=== PATIENT | male | born 1935 | race Caucasian/White ===

== ENCOUNTER 2018-12-20 10:36 | Outpatient (CLI) | payer MEDICARE ==
--- NOTE | 2018-12-20 14:12 | NM ---
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 COMPARISON: 12/03/2015 FINDINGS: There is increased uptake in the shoulders, sternoclavicular joints, elbows, hands, and feet consiste nt with degenerative changes. No other abnormal areas of tracer localization seen in the skeleton to suggest metastatic disease. Tracer excretion through the kidneys is within normal limits. IMPRESSION: No scintigraphic evidence of osseous metastatic disease.
== END 2018-12-20 10:37 | disposition home or self-care (01) ==
LOC: NM 10:36
PROVIDERS: ATTEND Urology
DX: C61 Malignant neoplasm of prostate (principal)
CPT/HCPCS: 78306; A9503

== ENCOUNTER 2019-03-14 13:46 | Outpatient (CLI) | payer MEDICARE ==
--- NOTE | 2019-03-14 14:56 | BD ---
DEXA BONE DENSITY STUDY: Date: 03/14/19 HISTORY: 83-year-old male with malignant neoplasm of the prostate. FINDINGS: Lumbar Spine: BMD (g/cm2) L1 0.968 T-Score: -1.0 L2 1.020 T-Score: -0.7 L3 0.892 T-Score: -1.9 L4 0.965 T-Score: -1.1 L1-L4 0.960 T-Score: -1.2 Femoral Neck: 0.649 T-Score: -2.1 Total Femur: 0.869 T-Score: -1.1 IMPRESSION: Osteopenia. This patient has a 10 year WHO fracture risk of a major osteoporotic fracture of 8.8% and of hip fracture of 3.7%. POS: C
== END 2019-03-14 13:47 | disposition home or self-care (01) ==
LOC: BICMAMMO 13:46
PROVIDERS: ATTEND Internal Medicine Hematology & Oncology
DX: Z13.820 Encounter for screening for osteoporosis (principal); C61 Malignant neoplasm of prostate; T38.6X5A Adverse effect of antigonadotrophins, antiestrogens, antiandrogens, not elsewhere classified, initial encounter; M85.89 Other specified disorders of bone density and structure, multiple sites
CPT/HCPCS: 77080

== ENCOUNTER 2019-07-01 15:08 | Emergency (ER) | payer MEDICARE | END 2019-07-01 16:03 | disposition home or self-care (01) | LOC: SCSER 15:08 | DX: L01.00 Impetigo, unspecified (principal); B02.9 Zoster without complications; E78.5 Hyperlipidemia, unspecified; E78.00 Pure hypercholesterolemia, unspecified | CPT/HCPCS: 99282 ==

== ENCOUNTER 2020-05-08 13:41 | Outpatient (CLI) | payer MEDICARE ==
--- NOTE | 2020-05-08 14:22 | BD ---
EXAM: DEXA bone density examination HISTORY: 84-year-old male for screening with osteopenia COMPARISON: 03/14/2019 FINDINGS: L1--bone mineral density 0.967 g/sq cm; T score -1.0 L2--bone mineral density 1.023 g/sq cm; T score -0.6 L3--bone mineral density 0.966 g/sq cm; T score -1.2 L4--bone mineral density 0.980 g/sq cm; T score -1.0 Total L1-L4--bone mineral density 0.983 g/sq cm; T score -1.0 Left femoral neck--bone mineral density0.647; T score -2.1 Total proximal left femur--bone mineral density 0.856; T score -1.2 IMPRESSION: Osteopenia. This patient has a 10 year WHO fracture risk of a major osteoporotic fracture of 7.2% and of a hip fracture of 3.3%. When compared to the prior examination, the bone density in the spine has increased 2.4%
== END 2020-05-08 13:42 | disposition home or self-care (01) ==
LOC: BICMAMMO 13:41
PROVIDERS: ATTEND Internal Medicine Hematology & Oncology
DX: Z13.820 Encounter for screening for osteoporosis (principal); T38.6X5A Adverse effect of antigonadotrophins, antiestrogens, antiandrogens, not elsewhere classified, initial encounter; M85.89 Other specified disorders of bone density and structure, multiple sites
CPT/HCPCS: 77080

== ENCOUNTER 2022-07-03 20:23 | Emergency (ER) | payer OTHER, MEDICARE | END 2022-07-03 23:24 | LOC: ERS 20:23 | DX: S00.03XA Contusion of scalp, initial encounter (principal); E78.5 Hyperlipidemia, unspecified; E78.00 Pure hypercholesterolemia, unspecified; W01.0XXA Fall on same level from slipping, tripping and stumbling without subsequent striking against object, initial encounter | CPT/HCPCS: 70450; 72125 ==

== ENCOUNTER 2022-11-04 20:03 | Emergency (ER) | payer MEDICARE | END 2022-11-04 23:53 | LOC: ERS 20:03 | DX: S51.811A Laceration without foreign body of right forearm, initial encounter (principal); S00.83XA Contusion of other part of head, initial encounter; E78.00 Pure hypercholesterolemia, unspecified; W10.1XXA Fall (on)(from) sidewalk curb, initial encounter; Y93.01 Activity, walking, marching and hiking; Z85.46 Personal history of malignant neoplasm of prostate; Z79.899 Other long term (current) drug therapy | CPT/HCPCS: 70450 ==

== ENCOUNTER 2023-05-04 17:02 | Emergency (ER) | payer MEDICARE ==
[2023-05-04] MEDS ORDERED: Morphine 4 MG/ML VIAL ONE (17:38)
== END 2023-05-04 19:45 ==
LOC: ERS 17:02
DX: S30.0XXA Contusion of lower back and pelvis, initial encounter (principal); S70.02XA Contusion of left hip, initial encounter; E78.00 Pure hypercholesterolemia, unspecified; W18.30XA Fall on same level, unspecified, initial encounter; Z79.899 Other long term (current) drug therapy
CPT/HCPCS: 71045; 72131; 72192; 96372; J2270